=== PATIENT | female | born 1980 | race Caucasian/White ===

== ENCOUNTER 2020-02-17 18:41 | Emergency (ER) | payer BC ==
[~2020-02-17] VITALS: Ht 162.6 cm; Wt 55.3 kg
[~2020-02-17 18:41] MED LIST: ACETAMINOPHEN325 M1; AZITHROMYC200 MG/51 PO; BACTRIM DS TAB1 EACH PO; CHERATUSSIN DA480 ML PO; CITRATE OF MAG296 ML PO; DARVOCET-N 1001 EACH PO; FLEXERIL PO; GENTAMICIN OPH3.5 GM OP; GOLYTELY4000 M1 PO; IBUPROFEN 800800 M1; IBUPROFEN 800800 MG PO; MEDROLDOSEPACK PO; MUCINEX100 MG PO; NOHOMEMEDICATIONS; NORCO 5-325 TA1 EACH PO; PHENERGAN 25 MG25 M1 PO; PREDNISONE 10 M10 M1 PO; PREDNISONE 20 M20 M1 PO; PREDNISONE 5 MG5 MG PO; TOBREX5 ML OP; ULTRAM 50MG TAB50 MG PO; VENTOLIN HFA 1818 GM INH; VICODIN 5-3001 EACH; ZPAK PO
[2020-02-17] MEDS ORDERED: KEFLEX500 M1 PO (19:12)
[2020-02-17 19:47] VITALS: BP 100/64
== END 2020-02-17 19:49 | disposition home or self-care (01) ==
LOC: M.ERS 18:41
DX: L03.113 Cellulitis of right upper limb (principal); J45.909 Unspecified asthma, uncomplicated; F17.210 Nicotine dependence, cigarettes, uncomplicated; Z98.51 Tubal ligation status; Z88.0 Allergy status to penicillin; Z88.6 Allergy status to analgesic agent